=== PATIENT | female | born 1935 | race Caucasian/White ===

== ENCOUNTER 2017-01-19 17:37 | Observation (INO) | payer SELFPAY ==
[~2017-01-19] VITALS: Ht 160 cm; Wt 60.0 kg
[2017-01-19 17:50] VITALS: BP 186/84; PULSE 83; RESP 16; TEMP 98.1; O2SAT 98
--- NOTE | 2017-01-19 19:51 | PD ---
HPI Chief Complaint: GI Complaint Time Seen by Provider: 19:31 Travel History International Travel<30 days: No Contact w/Intl Traveler<30days: No Traveled to known affect area: No History of Present Illness HPI 81-year-old female that presents to the ED for evaluation of vomiting. Patient had one episode of vomiting today. Per patient is because she hasn't been eating well. Per ambulance report she is having some left lower quadrant abdominal pain as well as some diarrhea and vomiting. Per patient she believes that she has to symptoms because she is upset because her brother about a week ago. She does also tell me that she wants to go home. She does not want to be here. Unclear as to what made her come Per ED nurse report her family is in the waiting room but unfortunately at the time of my evaluation patient was in the ambulance fall and family is not permitted to visit the patient so no family history is obtained. This time she complains of no pain or any other symptom. She states that there was no blood on her throw up. No allergies to medication. Denies any other medical issues. [facility] Social History Alcohol Use: No Tobacco Use: No Substance Use: No Allergies-Medications (Allergen,Severity, Reaction): Coded Allergies: No Known Allergies (Unverified , 01/19/17) Review of Systems Except as stated in HPI: all other systems reviewed are Neg Physical Exam Narrative GENERAL: SKIN: Warm and dry. HEAD: Atraumatic. Normocephalic. EYES: Pupils equal and round. No scleral icterus. No injection or drainage. ENT: No nasal bleeding or discharge. Mucous membranes pink and moist. Tongue is midline. No uvula deviation. NECK: Trachea midline. No JVD. CARDIOVASCULAR: Regular rate and rhythm. No murmurs, S3, S4. RESPIRATORY: No accessory muscle use. Clear to auscultation. Breath sounds equal bilaterally. GASTROINTESTINAL: Abdomen soft, slight tenderness to LLQ pain, nondistended. Hepatic and splenic margins not palpable. MUSCULOSKELETAL: Extremities without clubbing, cyanosis, or edema. No obvious deformities. Full range of motion of the upper and lower extremities bilaterally. 2+ pulses bilaterally. NEUROLOGICAL: Awake and alert. No obvious cranial nerve deficits. Motor grossly within normal limits. Five out of 5 muscle strength in the arms and legs. Normal speech. PSYCHIATRIC: Appropriate mood and affect; insight and judgment normal. Data Data Last Documented VS Vital Signs Date Time Temp Pulse Resp B/P (MAP) Pulse Ox O2 Delivery O2 Flow Rate FiO2 01/19/17 17:50 98.1 83 16 186/84 (118) 98 Orders Orders Complete Blood Count With Diff (01/19/17 19:15) Comprehensive Metabolic Panel (01/19/17 19:15) Lipase (01/19/17 19:15) Lactic Acid (01/19/17 19:15) Prothrombin Time / Inr (Pt) (01/19/17 19:15) Act Partial Throm Time (Ptt) (01/19/17 19:15) Urinalysis - C+S If Indicated (01/19/17 19:15) Ct Abd/Pel W Iv Contrast(Rout) (01/19/17 19:15) Iv Access Insert/Monitor (01/19/17 19:15) Ecg Monitoring (01/19/17 19:15) Oximetry (01/19/17 19:15) MDM Medical Decision Making Medical Screen Exam Complete: Yes Emergency Medical Condition: Yes Medical Record Reviewed: Yes Differential Diagnosis Diverticulitis versus gastroenteritis versus acute abdomen versus obstruction versus normal exam Narrative Course 81-year-old female that presents to the ED for evaluation of vomiting and belly pain. Patient was properly examined and was found to have signs and symptoms of unclear etiology. Patient herself has no complaints and states that she wants to go home. Force with family is not bedsides are cannot get a good history from her although she does appear to be a fairly reasonable historian. Labs were ordered. Patient will be moved to a different bed and will be signed out to provider pending dispo and treatment plan. Mushtaq Samuel Jan 19, 2017 19:51
--- NOTE | 2017-01-19 20:26 | PD ---
Physical Exam Date Seen by Provider: Jan 19, 2017 Time Seen by Provider: 20:23 Narrative 81 year old female presents to the emergency department for evaluation of nausea , vomiting. Patient was initially evaluated in the ambulance hallway and orders were placed. Patient tells me that she vomited times once today. She states that she did this because she is not at her was stressed out. Patient denies any complaints to me. No fevers or chills. No chest pain or shortness of breath. No abdominal pain. She states she is no longer nauseated. She declines having any chronic medical problems or take any prescribed medications. GENERAL: Well-nourished, well-developed female patient, afebrile. SKIN: Focused skin assessment warm/dry. HEAD: Normocephalic. Atraumatic. EYES: No scleral icterus. No injection or drainage. NECK: Supple, trachea midline. No JVD or lymphadenopathy. CARDIOVASCULAR: Regular rate and rhythm without murmurs, gallops, or rubs. RESPIRATORY: Breath sounds equal bilaterally. No accessory muscle use. Lungs sounds are clear to auscultation. GASTROINTESTINAL: Abdomen soft, non-tender, nondistended. MUSCULOSKELETAL: No cyanosis, or edema. BACK: Nontender without obvious deformity. No CVA tenderness. Data Data Last Documented VS Vital Signs Date Time Temp Pulse Resp B/P (MAP) Pulse Ox O2 Delivery O2 Flow Rate FiO2 01/19/17 20:53 98 Room Air 01/19/17 20:52 82 16 01/19/17 17:50 98.1 Orders Orders Complete Blood Count With Diff (01/19/17 19:15) Comprehensive Metabolic Panel (01/19/17 19:15) Lipase (01/19/17 19:15) Lactic Acid (01/19/17 19:15) Prothrombin Time / Inr (Pt) (01/19/17 19:15) Act Partial Throm Time (Ptt) (01/19/17 19:15) Urinalysis - C+S If Indicated (01/19/17 19:15) Ct Abd/Pel W Iv Contrast(Rout) (01/19/17 19:15) Iv Access Insert/Monitor (01/19/17 19:15) Ecg Monitoring (01/19/17 19:15) Oximetry (01/19/17 19:15) Labs Laboratory Tests Test 01/19/17 21:20 White Blood Count 10.0 TH/MM3 Red Blood Count 4.09 MIL/MM3 Hemoglobin 12.0 GM/DL Hematocrit 37.2 % Mean Corpuscular Volume 91.0 FL Mean Corpuscular Hemoglobin 29.3 PG Mean Corpuscular Hemoglobin Concent 32.2 % Red Cell Distribution Width 14.5 % Platelet Count 212 TH/MM3 Mean Platelet Volume 10.8 FL Neutrophils (%) (Auto) 87.6 % Lymphocytes (%) (Auto) 8.4 % Monocytes (%) (Auto) 3.4 % Eosinophils (%) (Auto) 0.1 % Basophils (%) (Auto) 0.5 % Neutrophils # (Auto) 8.8 TH/MM3 Lymphocytes # (Auto) 0.8 TH/MM3 Monocytes # (Auto) 0.3 TH/MM3 Eosinophils # (Auto) 0.0 TH/MM3 Basophils # (Auto) 0.1 TH/MM3 CBC Comment DIFF FINAL Differential Comment Urine Color YELLOW Urine Turbidity CLEAR Urine pH 7.5 Urine Specific [place] 1.015 Urine Protein NEG mg/dL Urine Glucose (UA) NEG mg/dL Urine Ketones 40 mg/dL Urine Occult Blood NEG Urine Nitrite NEG Urine Bilirubin NEG Urine Urobilinogen LESS THAN 2.0 MG/DL Urine Leukocyte Esterase NEG Urine RBC 1 /hpf Urine WBC 1 /hpf Urine Squamous Epithelial Cells <1 /hpf Microscopic Urinalysis Comment CULT NOT INDICATED Lactic Acid Level 1.3 mmol/L MDM Medical Record Reviewed: Yes Supervised Visit with JOSHUA: No Differential Diagnosis Gastroenteritis for selection abnormality versus dehydration versus diverticulitis versus UTI Narrative Course 81-year-old female presents to the emergency department for evaluation of vomiting. She arrived via EMS. Patient does appear well on my exam. She was initially evaluated ambulatory. CBC, CMP, lipase, lactic acid, PTT, PTT/INR UA , CT abdomen/pelvis with IV contrast were ordered and pending. CBC shows no acute abnormality. Lactic acid is 1.3. UA is negative for acute infection. CMP, lipase, coags, CT is still pending. My attending physician, Dr. Silverman, will resume care and disposition. Scripts No Active Prescriptions or Reported Meds Joceline Ring Jan 19, 2017 20:26
[2017-01-19 20:52] VITALS: BP 156/73; PULSE 82; RESP 16; O2SAT 97
[2017-01-19 20:53] VITALS: O2SAT 98
[2017-01-19 22:20] LABS: AUTOMATED NEUTROPHIL # 8.8 TH/MM3 (1.8-7.7); BASOPHIL # 0.1 TH/MM3 (0-0.2); BASOPHIL % 0.5 % (0.0-2.0); EOSINOPHIL % 0.1 % (0.0-4.0); HEMATOCRIT 37.2 % (35.0-46.0); HEMO FLAGS DIFF FINAL; LYMPH % 8.4 % (9.0-44.0); LYMPHOCYTE # 0.8 TH/MM3 (1.0-4.8); MEAN CORPUSCULAR HEMOGLOBIN 29.3 PG (27.0-34.0); MEAN CORPUSCULAR HGB CONC 32.2 % (32.0-36.0); MONO % 3.4 % (0.0-8.0); NEUT % 87.6 % (16.0-70.0); PLATELET COUNT 212 TH/MM3 (150-450); RED BLOOD COUNT 4.09 MIL/MM3 (4.00-5.30); RED CELL DISTRIBUTION WIDTH 14.5 % (11.6-17.2)
[2017-01-19 22:28] LABS: BLOOD, URINE NEG (NEG); COMMENT (UR) CULT NOT INDICATED; CULTURE IF INDICATED CULT NOT INDICATED; GLUCOSE,URINE NEG (NEG); KETONE, URINE 40 mg/dL (NEG); NITRITE,URINE NEG (NEG); PH, URINE 7.5 (5.0-8.5); SQUAMOUS EPITHELIAL CELL URINE <1 /hpf (0-5); URINE COLOR YELLOW (YELLW/STRAW)
[2017-01-19 22:49] LABS: ALKALINE PHOSPHATASE 96 U/L (45-117); ALT (GPT) 68 U/L (10-53); TOTAL BILIRUBIN ADULT 0.4 MG/DL (0.2-1.0)
[2017-01-19 22:54] LABS: APTT (PATIENT) 24.1 SEC (24.3-30.1); PROTHROMBIN TIME - PATIENT 10.6 SEC (9.8-11.6)
[2017-01-19 23:24] LABS: ANION GAP 9 MEQ/L (5-15); AST (GOT) 98 U/L (15-37); BICARBONATE 27.3 MEQ/L (21.0-32.0); BLOOD UREA NITROGEN 17 MG/DL (7-18); CHLORIDE 108 MEQ/L (98-107); GLOMERULAR FILTRATION RATE 76 ML/MIN (>89); POTASSIUM 3.9 MEQ/L (3.5-5.1); SODIUM (NA) 144 MEQ/L (136-145)
[2017-01-19] MEDS ORDERED: IOHEXOL 350 MG/ML 10 ML VIAL (for RAD DIAG) IVCONTRAST ONE (23:42)
--- NOTE | 2017-01-20 00:06 | RADRPT ---
EXAM DATE/TIME: 01/19/2017 23:40 [facility] COMPARISON: No previous studies available for comparison. INDICATIONS : Left upper quadrant pain with diarrhea and vomiting. IV CONTRAST: 70 cc Omnipaque 350 (iohexol) IV ORAL CONTRAST: No oral contrast ingested. RADIATION DOSE: 4.51 CTDIvol (mGy) MEDICAL HISTORY : None SURGICAL HISTORY : None. ENCOUNTER: Initial ACUITY: 1 day PAIN SCALE: 6/10 LOCATION: Left upper quadrant TECHNIQUE: Volumetric scanning of the abdomen and pelvis was performed. Using automated exposure control and ad justment of the mA and/or kV according to patient size, radiation dose was kept as low as reasonably achievable to obtain optimal diagnostic quality images. DICOM format image data is available electro nically for review and comparison. FINDINGS: LOWER LUNGS: Mild atelectasis and/or scarring of the lung bases. LIVER: Homogeneous density without lesion. There is no dilation of the biliary tree. Numerous tiny dependen tly layering gravel-like stones are seen in the gallbladder lumen. There is borderline wall thickenin g with prominent mucosal enhancement of the gallbladder and pericholecystic fluid. I don't see a duct stone or ductal dilatation.. SPLEEN: Normal size without lesion. PANCREAS: Within normal limits. KIDNEYS: Normal in size and shape. There is no mass, stone or hydronephrosis. ADRENAL GLANDS: Within normal limits. VASCULAR: There is atherosclerosis of the abdominal aorta. No aneurysm. BOWEL/MESENTERY: Moderate right and left side colon diverticulosis. No acute inflammatory changes are seen. Moderate s tool throughout the colon, especially the rectum. There is small free fluid in the pelvic cul-de-sac. Normal appendix. ABDOMINAL WALL: Within normal limits. RETROPERITONEUM: There is no lymphadenopathy. BLADDER: No wall thickening or mass. REPRODUCTIVE: Within normal limits. INGUINAL: There is no lymphadenopathy or hernia. MUSCULOSKELETAL: No acute bony abnormality demonstrated. CONCLUSION: 1. Mucosal enhancement, borderline wall thickening and pericholecystic fluid of the gallbladder sugge sting cholecystitis in the proper clinical setting. Tiny gravel-like stones are seen in the lumen but no duct stone or ductal dilatation. 2. Sigmoid colon diverticulosis without evidence of diverticulitis. Moderate stool. 3. Atherosclerosis of the abdominal aorta without aneurysm. 4. Small free fluid in the pelvic cavity. Nothing loculated or drainable. Grady Jones MD on January 19, 2017 at 23:59 Board Certified Radiologist. This report was verified electronically.
--- NOTE | 2017-01-20 01:29 | PD ---
Physical Exam Narrative General: The patient is well-developed well-nourished female in no acute distress. Head and Neck exam: Head is normocephalic atraumatic. Eyes: EOMI, pupils are equal round and reactive to light. Nose: Midline septum with pink mucous membranes Mouth: Dentition unremarkable. Moist mucus membranes. Posterior oropharynx is not erythematous. No tonsillar hypertrophy. Uvula midline. Airway patent. Neck: No palpable lymphadenopathy. No nuchal rigidity. No thyromegaly. Cardiovascular: Regular rate and rhythm without murmurs, gallops, or rubs. Lungs: Clear to auscultation bilaterally. No wheezes, rhonchi, or rales. Abdomen: Soft, with minimal midepigastric abdominal discomfort on deep palpation, no other tenderness on palpation of the other quadrants of the abdomen. No guarding , rebound, or rigidity. Normal bowel sounds are audible. No tenderness on palpation of McBurney's point Negative Richton sign. Extremities: No clubbing, cyanosis, or edema. 2+ pulses in all 4 extremities. Back: No spinous process tenderness to palpation. No costovertebral angle tenderness to palpation. Neurologic Exam: Grossly nonfocal. Skin Exam: No rash noted. Intact skin that is warm and dry. Data Data Last Documented VS Vital Signs Date Time Temp Pulse Resp B/P (MAP) Pulse Ox O2 Delivery O2 Flow Rate FiO2 01/20/17 01:56 72 16 157/72 (100) 98 Room Air 01/19/17 17:50 98.1 Orders Orders Complete Blood Count With Diff (01/19/17 19:15) Comprehensive Metabolic Panel (01/19/17 19:15) Lipase (01/19/17 19:15) Lactic Acid (01/19/17 19:15) Prothrombin Time / Inr (Pt) (01/19/17 19:15) Act Partial Throm Time (Ptt) (01/19/17 19:15) Urinalysis - C+S If Indicated (01/19/17 19:15) Ct Abd/Pel W Iv Contrast(Rout) (01/19/17 19:15) Iv Access Insert/Monitor (01/19/17 19:15) Ecg Monitoring (01/19/17 19:15) Oximetry (01/19/17 19:15) Iohexol 350 Inj (Omnipaque 350 Inj) (01/19/17 23:42) Admit Order (Ed Use Only) (01/20/17 02:00) Labs Laboratory Tests Test 01/19/17 21:20 White Blood Count 10.0 TH/MM3 Red Blood Count 4.09 MIL/MM3 Hemoglobin 12.0 GM/DL Hematocrit 37.2 % Mean Corpuscular Volume 91.0 FL Mean Corpuscular Hemoglobin 29.3 PG Mean Corpuscular Hemoglobin Concent 32.2 % Red Cell Distribution Width 14.5 % Platelet Count 212 TH/MM3 Mean Platelet Volume 10.8 FL Neutrophils (%) (Auto) 87.6 % Lymphocytes (%) (Auto) 8.4 % Monocytes (%) (Auto) 3.4 % Eosinophils (%) (Auto) 0.1 % Basophils (%) (Auto) 0.5 % Neutrophils # (Auto) 8.8 TH/MM3 Lymphocytes # (Auto) 0.8 TH/MM3 Monocytes # (Auto) 0.3 TH/MM3 Eosinophils # (Auto) 0.0 TH/MM3 Basophils # (Auto) 0.1 TH/MM3 CBC Comment DIFF FINAL Differential Comment Prothrombin Time 10.6 SEC Prothromb Time International Ratio 1.0 RATIO Activated Partial Thromboplast Time 24.1 SEC Urine Color YELLOW Urine Turbidity CLEAR Urine pH 7.5 Urine Specific [place] 1.015 Urine Protein NEG mg/dL Urine Glucose (UA) NEG mg/dL Urine Ketones 40 mg/dL Urine Occult Blood NEG Urine Nitrite NEG Urine Bilirubin NEG Urine Urobilinogen LESS THAN 2.0 MG/DL Urine Leukocyte Esterase NEG Urine RBC 1 /hpf Urine WBC 1 /hpf Urine Squamous Epithelial Cells <1 /hpf Microscopic Urinalysis Comment CULT NOT INDICATED Blood Urea Nitrogen 17 MG/DL Creatinine 0.74 MG/DL Random Glucose 105 MG/DL Total Protein 6.7 GM/DL Albumin 3.8 GM/DL Calcium Level 8.8 MG/DL Alkaline Phosphatase 96 U/L Aspartate Amino Transf (AST/SGOT) 98 U/L Alanine Aminotransferase (ALT/SGPT) 68 U/L Total Bilirubin 0.4 MG/DL Sodium Level 144 MEQ/L Potassium Level 3.9 MEQ/L Chloride Level 108 MEQ/L Carbon Dioxide Level 27.3 MEQ/L Anion Gap 9 MEQ/L Estimat Glomerular Filtration Rate 76 ML/MIN Lactic Acid Level 1.3 mmol/L Lipase 217 U/L [facility] Medical Record Reviewed: Yes Supervised Visit with JOSHUA: No Narrative Course During the course of the patients emergency department visit, the patients history, examination, and differential diagnosis were reviewed with the patient. The patient had IV access obtained and blood work sent for analysis. The patient was placed on a youth counselor with oximetry and blood pressure monitoring. The patient's case was initially seen by Joceline, the nurse practitioner. Please see her complete history and physical. The patient's case was checked out to me at the conclusion of her shift pending CT scan of the abdomen and pelvis. The patients laboratory studies were reviewed and remarkable for a CBC that shows a white count of 10, hemoglobin 12, platelets 2 1287.6 neutrophils, CMP is remarkable for chloride of 108, GFR 76, AST 98, ALT 68, lipase 217. Lactic acid is 1.3. PT 10.6, PTT 24.1, urinalysis shows 40 ketones otherwise unremarkable. Radiology studies were reviewed and remarkable for a chest x-ray that shows no acute cardiopulmonary disease, CT scan of the abdomen and pelvis shows mucosal enhancement, borderline wall thickening and pericholecystic fluid of the gallbladder suggesting cholecystitis in the proper clinical setting. The patient was reexamined by me and has no significant abdominal discomfort and a negative Loya's sign. I recommended that she follow-up with her primary care physician for additional testing at the symptoms recur, however the patient's family reports that she does not have a primary care physician. The patient and the patient's family preferred to have the workup completed in the emergency department/hospital. The patient will be admitted for observation for HIDA scan. The patients results were discussed with the patient, including the plan of care. I explained that further testing and/ or monitoring is indicated based on the patients history, examination, and/ or laboratory findings. Therefore, I recommended admission for additional evaluation. The patient expressed understanding and was agreeable with this plan. The patient was admitted to the hospital in stable condition and sent to a bed under the care of the [facility]. Physician Communication Physician Communication The patient's case was discussed with Dr. Chin who did agree to admit the patient for further evaluation and treatment at this time. Diagnosis Primary Impression: Abdominal pain Qualified Codes: R10.13 - Epigastric pain Additional Impressions: Vomiting Qualified Codes: R11.2 - Nausea with vomiting, unspecified Abnormal CT scan, gallbladder Admitting Information Admitting Physician Requests: Observation Scripts No Active Prescriptions or Reported Meds Elsi Silverman MD Jan 20, 2017 01:29
[2017-01-20 01:56] VITALS: BP 157/72; PULSE 72; RESP 16; O2SAT 98
[2017-01-20] MEDS ORDERED: SODIUM CHLORIDE 0.9% FLUSH 10 ML FLUSH IV FLUSH PRN (02:00)
[2017-01-20] MEDS ORDERED: ONDANSETRON HCL 4 MG/2 ML VIAL IVP PRN (02:00)
[2017-01-20] MEDS ORDERED: NALOXONE HCL 0.4 MG/ML AMP IV PUSH PRN (02:00)
--- NOTE | 2017-01-20 02:48 | RADRPT ---
EXAM DATE/TIME: 01/20/2017 02:03 [facility] COMPARISON: No previous studies available for comparison. INDICATIONS : Shortness of breath. MEDICAL HISTORY : None. SURGICAL HISTORY : None. ENCOUNTER: Initial ACUITY: 1 day PAIN SCORE: 0/10 LOCATION: Bilateral chest FINDINGS: A single view of the chest demonstrates the lungs to be symmetrically aerated without evidence of mas s, infiltrate or effusion. The cardiomediastinal contours are unremarkable. Osseous structures are intact. CONCLUSION: No evidence of acute cardiopulmonary disease. Grady Jones MD on January 20, 2017 at 2:46 Board Certified Radiologist. This report was verified electronically.
[2017-01-20 03:34] VITALS: BP 139/61; PULSE 75; RESP 18; TEMP 98; O2SAT 98
[2017-01-20 04:00] VITALS: PULSE 73
[2017-01-20 07:10] VITALS: BP 149/68; PULSE 80; RESP 16; TEMP 97.6; O2SAT 98
[2017-01-20 08:37] VITALS: PULSE 74
[2017-01-20] MEDS ORDERED: SODIUM CHLORIDE 0.9% FLUSH 10 ML FLUSH IV FLUSH SCH (09:00)
--- NOTE | 2017-01-20 09:24 | HHI.HP ---
[facility] Primary Care Physician No Primary Care Physician Admission Diagnosis Abdominal pain R/O acute cholecystitis Diagnoses: Chief Complaint: Vomiting Travel History International Travel<30 Days: No Contact w/Intl Traveler <30 Da: No Traveled to Known Affected Are: No History of Present Illness Written by Ulisses Rubalcava, acting as scribe for Dr. Disla on 01/20/17 at 09:24. 81-year-old female with no significant past medical history who presented after an episode of vomiting. Patient is seen with her and RN at bedside. The patient is quite cantankerous and is a poor historian. She continues states that there is nothing wrong with her and she does not want to be here. She states that she had one episode of vomiting immediately after eating some food that she found out had been left out overnight. She does not recall what was she ate. She denies any abdominal pain. She does not want to answer any more questions. She does deny any chest pain or shortness of breath. The patient refuses to answer orientation questions. She does not think that this is her gallbladder and does not want any work up for it. Her at bedside agrees to answer and he is oriented x3. She does not currently have a PCP, but states she wants to follow-up with after she's released from the hospital. Review of Systems ROS Limitations: Uncooperative, Poor Historian Review of systems is limited secondary to poor uncooperative historian as above Past Family Social History Past Medical History Patient denies Past Surgical History The patient states she's never needed any surgery Reported Medications None Allergies: Coded Allergies: No Known Allergies (Unverified , 01/19/17) Active Ordered Medications Current Medications Medications (Trade) Dose Ordered Sig/Jimbo Route Start Time Stop Time Status Last Admin (NS Flush) 2 ml UNSCH PRN IV FLUSH 01/20/17 02:00 (NS Flush) 2 ml BID IV FLUSH 01/20/17 09:00 (Zofran Inj) 4 mg Q6H PRN IVP 01/20/17 02:00 (Narcan Inj) 0.4 mg UNSCH PRN IV PUSH 01/20/17 02:00 Family History Patient states her parents of old age, doesn't recall how old they were Social History She denies any alcohol, tobacco, or drug use Physical Exam Vital Signs Vital Signs Date Time Temp Pulse Resp B/P (MAP) Pulse Ox O2 Delivery O2 Flow Rate FiO2 01/20/17 08:37 74 01/20/17 07:10 97.6 80 16 149/68 (95) 98 01/20/17 04:00 73 01/20/17 03:34 98.0 75 18 139/61 (87) 98 01/20/17 03:12 01/20/17 01:56 72 16 157/72 (100) 98 Room Air 01/19/17 20:53 98 Room Air 01/19/17 20:52 82 16 156/73 (100) 97 Room Air 01/19/17 17:50 98.1 83 16 186/84 (118) 98 Physical Exam GENERAL: Well-developed fair-nourished elderly female. In no acute distress. Uncooperative with history. SKIN: Warm and dry. No lesions noted. HEENT: Normocephalic. Pupils equal and round. Mucous membranes pink and moist. CARDIOVASCULAR: Regular rate and rhythm. No murmur appreciated. RESPIRATORY: No accessory muscle use. Clear to auscultation. Breath sounds equal bilaterally. GASTROINTESTINAL: Abdomen soft, non-tender, nondistended. Bowel sounds x4. MUSCULOSKELETAL: No obvious deformities. No clubbing or cyanosis. No edema. NEUROLOGICAL: Awake and alert. No focal neurological deficits. Moves upper and lower extremities spontaneously. Normal speech. Strength 5/5. PSYCHIATRIC: Can't pancreas mood and affect; insight and judgment fair. Laboratory Laboratory Tests Test 01/19/17 21:20 White Blood Count 10.0 Red Blood Count 4.09 Hemoglobin 12.0 Hematocrit 37.2 Mean Corpuscular Volume 91.0 Mean Corpuscular Hemoglobin 29.3 Mean Corpuscular Hemoglobin Concent 32.2 Red Cell Distribution Width 14.5 Platelet Count 212 Mean Platelet Volume 10.8 Neutrophils (%) (Auto) 87.6 Lymphocytes (%) (Auto) 8.4 Monocytes (%) (Auto) 3.4 Eosinophils (%) (Auto) 0.1 Basophils (%) (Auto) 0.5 Neutrophils # (Auto) 8.8 Lymphocytes # (Auto) 0.8 Monocytes # (Auto) 0.3 Eosinophils # (Auto) 0.0 Basophils # (Auto) 0.1 CBC Comment DIFF FINAL Differential Comment Prothrombin Time 10.6 Prothromb Time International Ratio 1.0 Activated Partial Thromboplast Time 24.1 Urine Color YELLOW Urine Turbidity CLEAR Urine pH 7.5 Urine Specific [place] 1.015 Urine Protein NEG Urine Glucose (UA) NEG Urine Ketones 40 Urine Occult Blood NEG Urine Nitrite NEG Urine Bilirubin NEG Urine Urobilinogen LESS THAN 2.0 Urine Leukocyte Esterase NEG Urine RBC 1 Urine WBC 1 Urine Squamous Epithelial Cells <1 Microscopic Urinalysis Comment CULT NOT INDICATED Blood Urea Nitrogen 17 Creatinine 0.74 Random Glucose 105 Total Protein 6.7 Albumin 3.8 Calcium Level 8.8 Alkaline Phosphatase 96 Aspartate Amino Transf (AST/SGOT) 98 Alanine Aminotransferase (ALT/SGPT) 68 Total Bilirubin 0.4 Sodium Level 144 Potassium Level 3.9 Chloride Level 108 Carbon Dioxide Level 27.3 Anion Gap 9 Estimat Glomerular Filtration Rate 76 Lactic Acid Level 1.3 Lipase 217 Result Diagram: 01/19/17211901/19/172119 Imaging Last Impressions Chest X-Ray 01/20/17 0000 Signed Impressions: Service Date/Time: Friday, January 20, 2017 02:03 - CONCLUSION: No evidence of acute cardiopulmonary disease. Grady Jones MD Abdomen/Pelvis CT 01/19/171914 Signed Impressions: Service Date/Time: Thursday, January 19, 2017 23:40 - CONCLUSION: 1. Mucosal enhancement, borderline wall thickening and pericholecystic fluid of the gallbladder suggesting cholecystitis in the proper clinical setting. Tiny gravel-like stones are seen in the lumen but no duct stone or ductal dilatation. 2. Sigmoid colon diverticulosis without evidence of diverticulitis. Moderate stool. 3. Atherosclerosis of the abdominal aorta without aneurysm. 4. Small free fluid in the pelvic cavity. Nothing loculated or drainable. Grady Jones MD Caprini VTE Risk Assessment Caprini VTE Risk Assessment: Mod/High Risk (score >= 2) VTE Pharm Contraindication: Patient refusal Caprini Risk Assessment Model Point Value = 1 Point Value = 2 Point Value = 3 Point Value = 5 Age 41-60 Minor surgery BMI > 25 kg/m2 Swollen legs Varicose veins or History of unexplained or recurrent spontaneous Oral contraceptives or hormone replacement Sepsis (< 1 month) Serious lung disease, including pneumonia (< 1 month) Abnormal pulmonary function Acute myocardial infarction Congestive heart failure (< 1 month) History of inflammatory bowel disease Medical patient at bed rest Age 61-74 Arthroscopic surgery Major open surgery (> 45 min) Laparoscopic surgery (> 45 min) Malignancy Confined to bed (> 72 hours) Immobilizing plaster cast Central venous access Age >= 75 History of VTE Family history of VTE Factor V Leiden Prothrombin [id number] Lupus anticoagulant Anticardiolipin antibodies Elevated serum homocysteine Heparin-induced thrombocytopenia Other congenital or acquired thrombophilia Stroke (< 1 month) Elective arthroplasty Hip, pelvis, or leg fracture Acute spinal cord injury (< 1 month) Prophylaxis Regimen Total Risk Factor Score Risk Level Prophylaxis Regimen 0-1 Low Early ambulation 2 Moderate Order ONE of the following: *Sequential Compression Device (SCD) *Heparin 5000 units SQ BID 3-4 Higher Order ONE of the following medications: *Heparin 5000 units SQ TID *Enoxaparin/Lovenox 40 mg SQ daily (WT < 150 kg, CrCl > 30 mL/min) *Enoxaparin/Lovenox 30 mg SQ daily (WT < 150 kg, CrCl > 10-29 mL/min) *Enoxaparin/Lovenox 30 mg SQ BID (WT < 150 kg, CrCl > 30 mL/min) AND/OR *Sequential Compression Device (SCD) 5 or more Highest Order ONE of the following medications: *Heparin 5000 units SQ TID (Preferred with Epidurals) *Enoxaparin/Lovenox 40 mg SQ daily (WT < 150 kg, CrCl > 30 mL/min) *Enoxaparin/Lovenox 30 mg SQ daily (WT < 150 kg, CrCl > 10-29 mL/min) *Enoxaparin/Lovenox 30 mg SQ BID (WT < 150 kg, CrCl > 30 mL/min) AND *Sequential Compression Device (SCD) Assessment and Plan Assessment and Plan 81-year-old female with no significant past medical history who presented after an episode of vomiting Episode of vomiting with possible cholecystitis: Reviewed: AST and ALT are mildly elevated, bilirubin within normal limits. Abdominal CT with findings suggesting possible cholecystitis. Afebrile with no leukocytosis. -General surgery consulted -Follow up LFTs and CBC Disposition: We recommended the patient stay for workup for her gallbladder and Gen. surgery recommendations; she is adamant she does not want to do this. The patient and are in agreement on this refusal and would rather follow-up as outpatient. Thus, we would recommend trial of oral intake and following up labs today to make sure there is no significant infection of the gallbladder. Patient is able to tolerate diet and labs are improved/stable, consider discharge on oral antibiotics later today for outpatient follow-up. The patient may decide to leave AGAINST MEDICAL ADVICE into the care of her . Discussed Condition With Patient with and RN at bedside Attending Statement This note was transcribed by octavio [Ulisses Rubalcava]. I, Dr. Yan Disla personally performed the history, physical exam, and medical decision making; and confirmed the accuracy of the information in the transcribed note. Authenticated by Dr. Yan Disla on 01/20/17 at 23:10. Ulisses Rubalcava Jan 20, 2017 09:24 Yan Disla MD Jan 20, 2017 23:10
[2017-01-20] MEDS ORDERED: SODIUM CHLOR 0.9% 1000 ML INJ 1,000 ML IV SCH (10:00)
== END 2017-01-20 11:54 | disposition home or self-care (01) ==
LOC: NEPC 17:37 → NEDA 01-20 02:02 → NEPFCDU 01-20 03:18
PROVIDERS: ADMIT Internal Medicine; ATTEND Internal Medicine
DX: R11.2 Nausea with vomiting, unspecified (principal); R19.7 Diarrhea, unspecified; R10.12 Left upper quadrant pain; R06.02 Shortness of breath; K57.30 Diverticulosis of large intestine without perforation or abscess without bleeding; I70.0 Atherosclerosis of aorta
CPT/HCPCS: 71010; 74177; 80053; 81001; 83605; 83690; 85025; 85610; 85730; G0378; G8987-GP; G8988-GP; Q9967